=== PATIENT | male | born 1955 | race Caucasian/White ===

== ENCOUNTER 2018-12-01 17:29 | Emergency (ER) | payer BC ==
--- NOTE | 2018-12-01 17:50 | ER Document Report ---
ED Medical Screen (RME) - General Chief Complaint: Urinary Retention Stated Complaint: DIFFICULTY URINATING Time Seen by Provider: 12/01/18 17:41 TRAVEL OUTSIDE OF THE [place] IN LAST 30 DAYS: No - HPI Notes: 12/01/18 17:45 Patient is a 62-year-old male with a history of BPH who presents complaining of being unable to urinate since 1130 this morning. Patient states that he is otherwise had trouble with weak stream and sometimes urinary frequency because of his BPH. He has not been seen by urologist in 5 years. He otherwise has been feeling well and has been eating and drinking without difficulty. He is having normal bowel movements. No other concerns or complaints. Denies any headache, fever, URI, sore throat, chest pain, palpitations, syncope, cough, shortness of breath, wheeze, dyspnea, abdominal pain, nausea/vomiting/diarrhea, back pain, numbness/tingling, saddle anesthesia, muscle paralysis/weakness, or rash. - Related Data Allergies/Adverse Reactions: No Known Allergies Allergy (Unverified 12/01/18 17:31) Past Medical History - Social History Cigarette use (# per day): No Family history: Reviewed & Not Pertinent Review of Systems - Review of Systems -: Yes All other systems reviewed and negative Physical Exam - Vital signs Vitals: Temp Pulse Resp BP Pulse Ox 97.9 F 89 20 151/99 H 97 12/01/18 17:37 12/01/18 17:37 12/01/18 17:37 12/01/18 17:37 12/01/18 17:37 - Notes Notes: PHYSICAL EXAMINATION: GENERAL: Well-appearing, well-nourished and in no acute distress. LUNGS: Breath sounds clear to auscultation bilaterally and equal. No wheezes rales or rhonchi. HEART: Regular rate and rhythm without murmurs, rubs, gallops. ABDOMEN: Soft but distended near suprapubic area. No guarding, no rebound. Normal bowel sounds present. No CVA tenderness bilaterally. Musculoskeletal: FROM to passive/active. Strength 5+/5. Extremities: No cyanosis, clubbing, or edema b/l. Peripheral pulses 2+. Capillary refill less than 3 seconds. NEUROLOGICAL: Normal speech, normal gait. Normal sensory, motor exams PSYCH: Normal mood, normal affect. SKIN: Warm, Dry, normal turgor, no rashes or lesions noted. Course - Re-evaluation Re-evalutation: 12/01/18 17:48 Pt attempted to provide urine sample and could not get anything out. We will place a clemons. Labs ordered otherwise. - Vital Signs Vital signs: Temp Pulse Resp BP Pulse Ox 97.9 F 89 20 151/99 H 97 12/01/18 17:37 12/01/18 17:37 12/01/18 17:37 12/01/18 17:37 12/01/18 17:37 Doctor's Discharge - Discharge Clinical Impression: Urinary retention Condition: Stable Instructions: Clemons Catheter Care ([facility]), Urinary Retention ([facility]) Additional Instructions: Maintain adequate fluid intake Proper hygenic technique Keep the skin clean Tylenol as needed Leave the Clemons catheter in place until evaluation with urology Take medications as directed F/u with your PCM in 3-5 days for a recheck Call urology and schedule an appointment for further evaluation and management Return to the ED with any worsening symptoms and/or development of fever, headache, chest pain, palpitations, syncope, shortness of breath, trouble breathing, abdominal pain, n/v/d, blood in stool/urine, loss of control of bowel/bladder, urinary retention, or other worsening symptoms that are concerning to you. Prescriptions: Tamsulosin HCl [Flomax] 0.4 mg PO DAILY #15 cap.er.24h Forms: Elevated Blood Pressure Referrals: [facility] [Provider Group] - Follow up in 3-5 days
--- NOTE | 2018-12-01 18:22 | ER Document Report ---
HPI - HPI Time Seen by Provider: 12/01/18 17:41 Pain Level: 5 Notes: Patient is a 62-year-old male with a history of BPH who presents complaining of being unable to urinate since 1130 this morning. Patient states that he is otherwise had trouble with weak stream and sometimes urinary frequency because of his BPH. He has not been seen by urologist in 5 years. He otherwise has been feeling well and has been eating and drinking without difficulty. He is having normal bowel movements. No other concerns or complaints. Denies any headache, fever, URI, sore throat, chest pain, palpitations, syncope, cough, shortness of breath, wheeze, dyspnea, abdominal pain, nausea/vomiting/diarrhea, back pain, numbness/tingling, saddle anesthesia, muscle paralysis/weakness, or rash. - ROS Systems Reviewed and Negative: Yes All other systems reviewed and negative - DERM Skin Color: Normal Past Medical History - Social History Smoking Status: Never Smoker Cigarette use (# per day): No Chew tobacco use (# tins/day): No Frequency of alcohol use: None Drug Abuse: None Family History: Reviewed & Not Pertinent Patient has suicidal ideation: No Patient has homicidal ideation: No Renal/ Medical History: Denies: Hx Peritoneal Dialysis Vertical Provider Document - CONSTITUTIONAL Agree With Documented VS: Yes Notes: PHYSICAL EXAMINATION: GENERAL: Well-appearing, well-nourished and in no acute distress. LUNGS: Breath sounds clear to auscultation bilaterally and equal. No wheezes rales or rhonchi. HEART: Regular rate and rhythm without murmurs, rubs, gallops. ABDOMEN: Soft but distended near suprapubic area. No guarding, no rebound. Normal bowel sounds present. No CVA tenderness bilaterally. Musculoskeletal: FROM to passive/active. Strength 5+/5. Extremities: No cyanosis, clubbing, or edema b/l. Peripheral pulses 2+. Capillary refill less than 3 seconds. NEUROLOGICAL: Normal speech, normal gait. Normal sensory, motor exams PSYCH: Normal mood, normal affect. SKIN: Warm, Dry, normal turgor, no rashes or lesions noted. - INFECTION CONTROL TRAVEL OUTSIDE OF THE [place] IN LAST 30 DAYS: No Course - Re-evaluation Re-evalutation: 12/01/18 17:48 Pt attempted to provide urine sample and could not get anything out. We will place a clemons. Labs ordered otherwise. 12/01/18 18:15 Clemons was placed successfully and >700cc's urine obtained. Pt feeling much better. UA/labs pending. 12/01/18 19:10 Patient is an afebrile, well-hydrated, 62-year-old male who presents with urinary retention most likely secondary to his BPH. Vitals are acceptable without significant tachycardia, tachypnea, or hypoxia. PE is otherwise unremarkable. Patient is nontoxic-appearing and is tolerating p.o. without difficulty. CBC, CMP, urinalysis unremarkable aside from hematuria. Clemons catheter will remain in place and leg bag provided. Patient states that he is feeling 100% better and is ready to go home. Patient's abdomen is otherwise soft and nontender. Low suspicion/risk for acute appendicitis, bowel obst ruction, acute cholecystitis, perforated diverticulitis, incarcerated hernia, pancreatitis, perforated ulcer, peritonitis, sepsis, testicular torsion, or other systemic emergent condition at this time. Patient is aware that his condition can change from initial presentation and he needs to monitor symptoms closely and seek medical attention if any acute changes. Conservative measures otherwise for symptoms. Recheck with PCM in 3-5 days. He is going to call urology tomorrow to set up an appointment for further evaluation and management. Return to the ED with any worsening/concerning symptoms otherwise as reviewed in discharge. Patient is in agreement. - Vital Signs Vital signs: Temp Pulse Resp BP Pulse Ox 97.9 F 89 20 151/99 H 97 12/01/18 17:37 12/01/18 17:37 12/01/18 17:37 12/01/18 17:37 12/01/18 17:37 - Laboratory Result Diagrams: 12/01/18 18:12 12/01/18 18:12 Discharge - Discharge Clinical Impression: Urinary retention Condition: Stable Disposition: HOME, SELF-CARE Instructions: Clemons Catheter Care ([facility]), Urinary Retention ([facility]) Additional Instructions: Maintain adequate fluid intake Proper hygenic technique Keep the skin clean Tylenol as needed Leave the Clemons catheter in place until evaluation with urology Take medications as directed F/u with your PCM in 3-5 days for a recheck Call urology and schedule an appointment for further evaluation and management Return to the ED with any worsening symptoms and/or development of fever, headache, chest pain, palpitations, syncope, shortness of breath, trouble breathing, abdominal pain, n/v/d, blood in stool/urine, loss of control of bowel/bladder, urinary retention, or other worsening symptoms that are concerning to you. Prescriptions: Tamsulosin HCl [Flomax] 0.4 mg PO DAILY #15 cap.er.24h Forms: Elevated Blood Pressure Referrals: [facility] [Provider Group] - Follow up in 3-5 days
[2018-12-01 18:41] LABS: ABSOLUTE BASOPHILS # (AUTO) 0.1 10^3/uL (0.0-0.2); ABSOLUTE EOSINOPHILS # (AUTO) 0.2 10^3/uL (0.0-0.6); ABSOLUTE LYMPHOCYTES (AUTO) 1.6 10^3/uL (0.5-4.7); ABSOLUTE MONOCYTES (AUTO) 0.5 10^3/uL (0.1-1.4); ABSOLUTE NEUT (AUTO) 6.4 10^3/uL (1.7-8.2); BASOPHILS % (AUTO) 0.6 % (0-2); HEMATOCRIT 45.1 % (37.9-51.0); HEMOGLOBIN 15.1 g/dL (13.5-17.0); LYMPHOCYTES % (AUTO) 18.8 % (13-45); MEAN CORPUSCULAR HEMOGLOBIN 28.1 pg (27.0-33.4); MEAN CORPUSCULAR HGB CONC 33.6 g/dL (32.0-36.0); MEAN CORPUSCULAR VOLUME 84 fl (80-97); MONOCYTES % (AUTO) 5.6 % (3-13); PLATELET COUNT 228 10^3/uL (150-450); RED BLOOD COUNT 5.39 10^6/uL (4.35-5.55); RED CELL DISTRIBUTION WIDTH 13.3 % (11.5-14.0); TOTAL CELLS COUNTED % (AUTO) 100 %; WHITE BLOOD COUNT 8.7 10^3/uL (4.0-10.5)
[2018-12-01 18:42] LABS: APPEARANCE,URINE CLEAR; BILIRUBIN,URINE NEGATIVE (NEGATIVE); COLOR,URINE YELLOW; GLUCOSE, URINE NEGATIVE (NEGATIVE); KETONES,URINE NEGATIVE (NEGATIVE); LEUKOCYTE ESTERASE,URINE NEGATIVE (NEGATIVE); NITRITE,URINE NEGATIVE (NEGATIVE); PROTEIN,URINE NEGATIVE (NEGATIVE); URINE SPECIFIC GRAVITY 1.005; UROBILINOGEN,URINE NEGATIVE mg/dL (<2.0)
[2018-12-01 19:00] LABS: ALANINE AMINOTRANSFERASE 51 U/L (21-72); ALBUMIN 4.2 g/dL (3.5-5.0); ALKALINE PHOSPHATASE 91 U/L (38-126); ANION GAP 13 (5-19); ASPARTATE AMINO TRANSFERASE 44 U/L (17-59); BILIRUBIN,DIRECT 0.2 mg/dL (0.0-0.4); BILIRUBIN,TOTAL 0.6 mg/dL (0.2-1.3); BLOOD UREA NITROGEN 13 mg/dL (7-20); CALCIUM 9.6 mg/dL (8.4-10.2); CARBON DIOXIDE 24 mmol/L (22-30); CHLORIDE 104 mmol/L (98-107); GLUCOSE 109 mg/dL (75-110); POTASSIUM 4.2 mmol/L (3.6-5.0); SODIUM 141.1 mmol/L (137-145); TOTAL PROTEIN 6.9 g/dL (6.3-8.2)
[2018-12-01 19:25] VITALS: BP 125/80
== END 2018-12-01 19:26 | disposition home or self-care (01) ==
LOC: ER 17:29
DX: N40.1 Benign prostatic hyperplasia with lower urinary tract symptoms (principal); R33.8 Other retention of urine; R35.0 Frequency of micturition; R31.9 Hematuria, unspecified
CPT/HCPCS: 36415; 51702; 80053; 81001; 85025; 99283

== ENCOUNTER 2018-12-04 10:09 | Emergency (ER) | payer BC ==
--- NOTE | 2018-12-04 11:19 | ER Document Report ---
HPI - HPI Time Seen by Provider: 12/04/18 10:44 Pain Level: Denies Context: Patient is a 8-year-old male who presents the emergency department to have his urinary catheter removed. He was seen on December 01 for urinary retention and a catheter was placed and 700 mL's of urine was drained. Patient states that he just feels uncomfortable having the catheter in. He states that it is draining well. Denies any fever, body aches, or any symptoms at this time. Patient does have a known history of BPH. He does not currently take any medications. - CONSTITUTIONAL Constitutional: DENIES: Fever, Chills - EENT EENT: DENIES: Sore Throat - NEURO Neurology: DENIES: Headache - CARDIOVASCULAR Cardiovascular: DENIES: Chest pain - RESPIRATORY Respiratory: DENIES: Trouble Breathing, Coughing - GASTROINTESTINAL Gastrointestinal: DENIES: Abdominal Pain - URINARY Urinary: DENIES: Dysuria, Urgency, Frequency Notes: Urinary catheter irritation - MUSCULOSKELETAL Musculoskeletal: DENIES: Extremity pain - DERM Skin Color: Normal Skin Problems: None Past Medical History - General Information source: Patient - Social History Smoking Status: Never Smoker Family History: Reviewed & Not Pertinent Renal/ Medical History: Denies: Hx Peritoneal Dialysis Vertical Provider Document - CONSTITUTIONAL Agree With Documented VS: Yes Exam Limitations: No Limitations General Appearance: No Apparent Distress - INFECTION CONTROL TRAVEL OUTSIDE OF THE [place] IN LAST 30 DAYS: No - HEENT HEENT: Atraumatic, Normocephalic, PERRLA - NECK Neck: Normal Inspection - RESPIRATORY Respiratory: Breath Sounds Normal, No Respiratory Distress - CARDIOVASCULAR Cardiovascular: Regular Rate, Regular Rhythm Pulses: Normal: Brachial - GI/ABDOMEN Gastrointestinal: Abdomen Soft - REPRODUCTIVE Notes: Urinary catheter in place - BACK Back: Normal Inspection - MUSCULOSKELETAL/EXTREMETIES Musculoskeletal/Extremeties: FROM - NEURO Level of Consciousness: Awake, Alert, Appropriate Motor/Sensory: No Motor Deficit, No Sensory Deficit - DERM Integumentary: Warm, Dry, No Rash Course - Re-evaluation Re-evalutation: 12/04/18 11:19 Patient's catheter will be removed here in the emergency department. He is visiting from [place] and he goes back home on Saturday. He will follow-up with his primary care provider at home. 12/04/18 12:27 Patient was able to void after having his urinary removed. He denies any burning or any symptoms. He will follow-up with his primary care provider in [place] on Saturday. I have advised him to follow-up with any emergency department if he has any urinary retention. He is in agreement with this plan. Verbal discharge instructions were given to the patient. They verbalized understanding. They are stable for discharge. - Vital Signs Vital signs: Temp Pulse Resp BP Pulse Ox 98.5 F 68 18 132/78 H 100 12/04/18 10:38 12/04/18 10:38 12/04/18 10:38 12/04/18 10:38 12/04/18 10:38 Discharge - Discharge Clinical Impression: Encounter for removal of urinary catheter Condition: Stable Disposition: HOME, SELF-CARE Additional Instructions: You were seen today in the emergency department to have your urine catheter removed. If you are not able to urinate again, or have any symptoms that are worrisome to you, please return to the emergency department or visit the local emergency department where you are at. Please follow-up with your primary care provider on Saturday. Call them today to make an appointment. If you develop a fever, abdominal pain, or have any symptoms that are worrisome to you, please return to the emergency department.
[2018-12-04 12:44] VITALS: BP 129/79
== END 2018-12-04 12:44 | disposition home or self-care (01) ==
LOC: ER 10:09
DX: Z46.6 Encounter for fitting and adjustment of urinary device (principal)
CPT/HCPCS: 99283